=== PATIENT | male | born 1995 | race American Indian/Alaskan Native ===

== ENCOUNTER 2020-03-01 02:31 | Emergency (ER) | payer SELFPAY ==
--- NOTE | 2020-03-01 04:16 | XRay Report ---
RIGHT HAND 3 VIEWS INDICATION / CLINICAL INFORMATION: right hand pain COMPARISON: None available. FINDINGS: BONES / JOINT(S): No acute fracture or subluxation. No significant arthritis. SOFT TISSUES: No significant abnormality. ADDITIONAL FINDINGS: None. Signer Name: Supa Norton MD Signed: 03/01/2020 4:12 AM Workstation Name: [id number]
[2020-03-01] MEDS ORDERED: IBUPROFEN 600 MG TAB PO ONE (07:45)
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
[2020-03-01] MEDS ORDERED: SODIUM CHLORIDE 0.9% IRR 500 ML BOTTLE IR ONE (07:48)
[2020-03-01] MEDS ORDERED: TETANUS,DIPHTHERIA TOXOID ADULT 0.5 ML INJ IM ONE (08:00)
[2020-03-01] MEDS ORDERED: LIDOCAINE (1%) 10 MG/1 ML VIAL 20 ML MDV INFILTRATI ONE (08:49)
[2020-03-01] MEDS ORDERED: NEOMY 3.5 MG/BACIT 400 UNITS/POLY B 5000 UNITS/GM OINT PACKET TP ONE ×2 (09:17→09:18)
[2020-03-01 09:35] VITALS: BP 114/68
[2020-03-01] MEDS ORDERED: BACITRACIN ZINC OINT 28.4 GM TP SCH (10:00)
== END 2020-03-01 09:35 | disposition home or self-care (01) ==
LOC: ED 02:31
DX: S61.214A Laceration without foreign body of right ring finger without damage to nail, initial encounter (principal)
CPT/HCPCS: 12002; 73130; 90471; 90714; 99284; A6250

== ENCOUNTER 2020-03-10 11:51 | Emergency (ER) | payer SELFPAY ==
[2020-03-10 12:04] VITALS: BP 121/74
--- NOTE | 2020-03-10 12:05 | Emergency Department Report ---
Suture/Staple Removal - [facility] Chief Complaint: Laceration/Recheck/Suture Stated Complaint: SUTURE REMOVED Time Seen by Provider: 03/10/20 12:03 When Sutures or Taiwo Placed: 8-10 Days Ago Wound Location: right hand ED Review of Systems ROS: Stated complaint: SUTURE REMOVED Other details as noted in HPI Constitutional: denies: chills, fever Eyes: denies: eye pain, eye discharge, vision change ENT: denies: ear pain, throat pain Respiratory: denies: cough, shortness of breath, wheezing Cardiovascular: denies: chest pain, palpitations Endocrine: no symptoms reported Gastrointestinal: denies: abdominal pain, nausea, diarrhea Genitourinary: denies: urgency, dysuria Musculoskeletal: denies: back pain, joint swelling, arthralgia Skin: denies: rash, lesions Neurological: denies: headache, weakness, paresthesias Psychiatric: denies: anxiety, depression Hematological/Lymphatic: denies: easy bleeding, easy bruising ED Past Medical Hx - Past Medical History Previous Medical History?: No - Surgical History Past Surgical History?: No - Social History Smoking Status: Never Smoker Substance Use Type: None Suture Removal Exam - Exam General: Vital signs noted. No distress. Alert and acting appropriately. Wound: No Pathologic Erythema, No Tenderness, No Drainage, No Pus, No Wound Dehiscence Other Systems: All other systems reviewed and are unremarkable. ED Course Vital Signs 03/10/20 12:02 Temperature 97.9 F Pulse Rate 65 Respiratory 18 Rate Blood Pressure 121/74 O2 Sat by Pulse 98 Oximetry - Reevaluation(s) Reevaluation #1: 03/10/20 12:04 Patient is speaking in full sentences with no signs of distress noted. ED Recheck MDM - Medical Decision Making total of 4 sutures removed. pt tolerated well. well healing. Patient was instructed to Follow-up with a primary care doctor in 3-5 days or if symptoms worsen and continue return to emergency room as soon as possible. At time of discharge, the patient does not seem toxic or ill in appearance. No acute signs of distress noted. Patient agrees to discharge treatment plan of care. No further questions noted by the patient. Critical care attestation.: If time is entered above; I have spent that time in minutes in the direct care of this critically ill patient, excluding procedure time. ED Disposition Clinical Impression: Encounter for removal of sutures Disposition: - TO HOME OR SELFCARE Is pt being admited?: No Does the pt Need Aspirin: No Condition: Stable Instructions: Suture Removal (ED) Additional Instructions: Follow-up with a primary care doctor in 3-5 days or if symptoms worsen and continue return to emergency room as soon as possible. Referrals: PRIMARY CAREMD [Referring] - 3-5 Days ESTHER CORRALES MD [Staff Physician] - 3-5 Days Forms: Work/School Release Form(ED)
== END 2020-03-10 15:51 | disposition home or self-care (01) ==
LOC: ED 11:51
DX: S61.411D Laceration without foreign body of right hand, subsequent encounter (principal); X58.XXXD Exposure to other specified factors, subsequent encounter

== ENCOUNTER 2021-09-28 17:00 | Emergency (ER) | payer OTHER ==
[2021-09-28 17:15] VITALS: BP 113/66
--- NOTE | 2021-09-28 17:49 | XRay Report ---
CHEST 2 VIEWS INDICATION / CLINICAL INFORMATION: chest pain. COMPARISON: None available. FINDINGS: SUPPORT DEVICES: None. HEART / MEDIASTINUM: No significant abnormality. LUNGS / PLEURA: No significant pulmonary or pleural abnormality. No pneumothorax. ADDITIONAL FINDINGS: No significant additional findings. IMPRESSION: 1. No acute findings. Signer Name: Temo Toledo DO Signed: 09/28/2021 5:45 PM Workstation Name: [id number]
--- NOTE | 2021-09-29 12:26 | Electrocardiograph Report ---
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
--- NOTE | 2021-09-29 12:29 | Electrocardiograph Report ---
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 Compared to ECG 09/28/2021 17:25:02 Rate is faster,otherwise no significant change noted. Electronically Signed On 09-29-2021 12:28:39 EDT by Jeison Smith
== END 2021-09-29 08:07 | disposition left against medical advice (07) ==
LOC: ED 17:00
DX: R07.9 Chest pain, unspecified (principal); Z53.21 Procedure and treatment not carried out due to patient leaving prior to being seen by health care provider
CPT/HCPCS: 71046; 93005